=== PATIENT | female | born 1935 | race Asian ===

== ENCOUNTER → 2016-08-16 | Outpatient (CLI) | payer MEDICARE, OTHER ==
[~2016-08-16] MED LIST: ASPI81TA42 PO; ATOR40TA28 PO; BACL10TA PO; BISO1TAB46 PO; DIPH25 PO; LISI1TAB11 PO; METF10002 PO; MULT-1203; NIFE60TA81 PO; OMEP20CA10 PO; SITA100 PO; VALS160T2 PO; [UNRECOGNIZED DRUG - CODE] PO
[2016-08-16 12:29] LABS: CALCIUM, TOTAL 9.1 mg/dL (8.8-10.5); CREATININE 1.36 mg/dL (0.60-1.30); POTASSIUM 4.6 mmol/L (3.5-5.1)
== END | disposition home or self-care (01) ==
LOC: LABPV 09:56
PROVIDERS: ATTEND Internal Medicine Nephrology
DX: E11.22 Type 2 diabetes mellitus with diabetic chronic kidney disease (principal); N18.3 Chronic kidney disease, stage 3 (moderate); R60.0 Localized edema

== ENCOUNTER → 2018-11-05 | Outpatient (CLI) | payer MEDICARE, OTHER ==
[~2018-11-05] MED LIST changes: +AMLO-343 PO; +ASPI81TA40 PO; -ASPI81TA42 PO; +METF-446 PO; -METF10002 PO; -[UNRECOGNIZED DRUG - CODE] PO
== END | disposition home or self-care (01) ==
LOC: RADPV 09:09
PROVIDERS: ATTEND Internal Medicine
DX: M47.816 Spondylosis without myelopathy or radiculopathy, lumbar region (principal); I70.0 Atherosclerosis of aorta
CPT/HCPCS: 72100; 72170

== ENCOUNTER → 2019-08-13 | Outpatient (CLI) | payer MEDICARE, OTHER ==
[~2019-08-13] MED LIST changes: -OMEP20CA10 PO; +OMEP20CA12 PO
== END | disposition home or self-care (01) ==
LOC: RADPV 10:39
PROVIDERS: ATTEND Podiatrist
DX: L97.529 Non-pressure chronic ulcer of other part of left foot with unspecified severity (principal); M20.12 Hallux valgus (acquired), left foot; M77.32 Calcaneal spur, left foot; M25.872 Other specified joint disorders, left ankle and foot

== ENCOUNTER 2020-10-04 05:43 | Day surgery (SDC) | payer MEDICARE, OTHER ==
[2020-10-01 13:44] LABS: COVID AG,FIA SOURCE NASOPHARYNGEAL
[~2020-10-04] VITALS: Ht 154.9 cm; Wt 50.9 kg
[~2020-10-04 05:43] MED LIST changes: +ACET-2247 PO; +ALBU8HFA IH; -AMLO-343 PO; +AMOX1TAB16 PO; +APIX2.5T PO; +ASCO500 PO; -ASPI81TA40 PO; -ATOR40TA28 PO; -BACL10TA PO; -BISO1TAB46 PO; +CARV25 PO; +CLOP75TA60 PO; -DIPH25 PO; +DULO30CA96 PO; +FAMO20 PO; +FLUT1BLS IH; +FURO40 PO; +HYDR50TA36 PO; +ISOS60TA77 PO; +LACT1CAP70 PO; -LISI1TAB11 PO; -MULT-1203; +MULT-264 PO; -NIFE60TA81 PO; +OLOP5DRO14 OU; -OMEP20CA12 PO; +OS500 PO; +ROSU20TA73 PO; -SITA100 PO; +SODIUM CHLORIDE 0.9% 1,000 ML IV ONE; +TRAM50TA4 PO; -VALS160T2 PO; +ZINC220C14 PO
[2020-10-04] MEDS ORDERED: SODIUM CHLORIDE 0.9% 1,000 ML ONE (05:54)
[2020-10-04 06:58] LABS: GLUCOMETER DEV NAME(LOC) SDS.; GLUCOSE,POINT OF CARE 174 MG/DL (70-110)
[2020-10-04] MEDS ORDERED: SODIUM CHLORIDE 0.9% 1,000 ML IV ONE (07:00)
[2020-10-04 07:23] VITALS: BP 207/77
[2020-10-04] MEDS ORDERED: SODIUM BICARBONATE 50 MEQ/50 ML VIAL ONE (07:33)
[2020-10-04] MEDS ORDERED: INSU100V SQ (07:33)
[2020-10-04] MEDS ORDERED: LIDOCAINE/PF 1% 30 ML VIAL ONE (07:33)
[2020-10-04] MEDS ORDERED: ACAR50TA2 PO (07:33)
[2020-10-04] MEDS ORDERED: IODIXANOL 320 MG/ML 150 ML VIAL ONE (07:33)
[2020-10-04] MEDS ORDERED: AMLO2.5T96 PO (07:33)
[2020-10-04] MEDS ORDERED: HEPARIN SODIUM 1000 UNITS/NS 1,000 ML ONE (07:33)
[2020-10-04] MEDS ORDERED: INSLAN SQ (07:33)
[2020-10-04] MEDS ORDERED: IODIXANOL 320 MG/ML 100 ML VIAL ONE ×2 (07:33→09:12)
[2020-10-04] MEDS ORDERED: MIDAZOLAM HCL 2 MG/2 ML VIAL ONE ×4 (07:40→10:39)
[2020-10-04] MEDS ORDERED: FentaNYL CITRATE PF 100 MCG/2 ML VIAL ONE ×2 (07:40→09:44)
[2020-10-04] MEDS ORDERED: IODIXANOL 320 MG/ML 150 ML VIAL IARTER ONE (08:15)
[2020-10-04] MEDS ORDERED: IODIXANOL 320 MG/ML 100 ML VIAL IARTER ONE (08:15)
[2020-10-04] MEDS ORDERED: LIDOCAINE 1% 30 ML/SOD BICARB 8.4% 4 ML SQ ONE (08:15)
[2020-10-04] MEDS ORDERED: MIDAZOLAM HCL 2 MG/2 ML VIAL IVP ONE ×4 (08:15→10:15)
[2020-10-04] MEDS ORDERED: HEPARIN SODIUM 1000 UNITS/NS 1,000 ML IARTER ONE (08:15)
[2020-10-04] MEDS ORDERED: FentaNYL CITRATE PF 100 MCG/2 ML VIAL IVP ONE ×4 (08:15→10:15)
[2020-10-04] MEDS ORDERED: NITROGLYCERIN 50 MG/D5% WATER 250 ML ONE (08:47)
[2020-10-04] MEDS ORDERED: VERAPAMIL HCL 2.5 MG/ML 2 ML VIAL ONE (08:47)
[2020-10-04] MEDS ORDERED: HEPARIN SODIUM,PORCINE 5,000 UNITS/ML VIAL IVP ONE ×2 (09:15→10:00)
[2020-10-04] MEDS ORDERED: IODIXANOL 320 MG/ML 50 ML VIAL IARTER ONE (10:15)
[2020-10-04] MEDS ORDERED: NITROGLYCERIN/D5W 50 MG/250 ML IV BOTTLE IARTER ONE (10:15)
[2020-10-04] MEDS ORDERED: IODIXANOL 320 MG/ML 50 ML VIAL ONE (10:35)
[2020-10-04] MEDS ORDERED: SODIUM CHLORIDE 0.9% 500 ML IV ONE (11:00)
[2020-10-04] MEDS ORDERED: ACETAMINOPHEN 325 MG TABLET PO PRN (11:00)
[2020-10-04 13:39] VITALS: BP 162/65
== END 2020-10-04 17:00 | disposition home or self-care (01) ==
LOC: CATHLAB 05:43
PROVIDERS: ATTEND Internal Medicine Cardiovascular Disease
DX: I70.212 Atherosclerosis of native arteries of extremities with intermittent claudication, left leg (principal); I70.222 Atherosclerosis of native arteries of extremities with rest pain, left leg; I70.245 Atherosclerosis of native arteries of left leg with ulceration of other part of foot; I25.10 Atherosclerotic heart disease of native coronary artery without angina pectoris; I10 Essential (primary) hypertension; E78.5 Hyperlipidemia, unspecified; E11.51 Type 2 diabetes mellitus with diabetic peripheral angiopathy without gangrene; I48.0 Paroxysmal atrial fibrillation; Z88.0 Allergy status to penicillin; Z79.01 Long term (current) use of anticoagulants; Z79.4 Long term (current) use of insulin; Z90.710 Acquired absence of both cervix and uterus; Z98.890 Other specified postprocedural states; Z95.5 Presence of coronary angioplasty implant and graft; Z89.411 Acquired absence of right great toe; Z88.1 Allergy status to other antibiotic agents; Z88.8 Allergy status to other drugs, medicaments and biological substances; Z79.899 Other long term (current) drug therapy
CPT/HCPCS: 37221; 37227; 75625; 75716; 76937; 82962; 87426; 99152; 99153; C1714; C1725; C1760; C1769 ×3; C1874; C1887; C9803; J1644 ×2; J2250; J3010; J3490 ×4; J7030; Q9967 ×3; 36200; 37205; 37229; 75630; 75962; Z7610

== ENCOUNTER 2020-10-08 13:34 | Emergency (ER) | payer MEDICARE, OTHER ==
[~2020-10-08] VITALS: Ht 149.9 cm; Wt 55.0 kg
[~2020-10-08 13:34] MED LIST changes: +ACAR50TA2 PO; +AMLO2.5T96 PO; -AMOX1TAB16 PO; -ASCO500 PO; +INSLAN SQ; +INSU100V SQ; -ISOS60TA77 PO; -LACT1CAP70 PO; -OLOP5DRO14 OU; -OS500 PO; -SODIUM CHLORIDE 0.9% 1,000 ML IV ONE
[2020-10-08 18:17] LABS: BASOPHILS % (AUTO) 0.4 % (0.0-2.0); EOSINOPHILS % (AUTO) 2.5 % (1.0-6.0); HEMATOCRIT 34.9 % (36-46); HEMOGLOBIN 11.1 g/dL (12.0-16.0); LYMPHOCYTES # (AUTO) 0.9 K/uL (1.0-4.8); LYMPHOCYTES % (AUTO) 20.4 % (22.0-44.0); MEAN CORPUSCULAR HEMOGLOBIN 28.1 pg (26.0-34.0); MEAN CORPUSCULAR HGB CONC 31.7 G/dL (31.0-37.0); MEAN CORPUSCULAR VOLUME 89 fL (80-100); MONOCYTES # (AUTO) 0.4 K/uL (0.1-1.0); MONOCYTES % (AUTO) 8.6 % (2.0-9.0); NEUTROPHILS % (AUTO) 68.1 % (40.0-70.0); PLATELET COUNT (AUTO) 179 K/uL (150-450); RED BLOOD CELL COUNT(AUTO) 3.94 MIL/uL (4.00-5.20); RED CELL DISTRIBUTION WIDTH 16.3 % (11.5-14.5)
[2020-10-08 18:26] LABS: CALCIUM, TOTAL 9.4 mg/dL (8.8-10.5); CREATININE 1.21 mg/dL (0.60-1.30); POTASSIUM 3.1 mmol/L (3.5-5.1)
[2020-10-08 18:30] LABS: PROTHROMBIN TIME 10.3 SEC (9.4-11.6)
[2020-10-08 18:32] LABS: ALBUMIN 3.9 g/dL (3.4-5.0); BILIRUBIN,TOTAL 0.5 mg/dL (0.1-1.0); TOTAL PROTEIN, SERUM 8.5 g/dL (6.4-8.2)
[2020-10-08 18:59] LABS: COVID AG,FIA SOURCE NASOPHARYNGEAL
[2020-10-08] MEDS: ACETAMINOPHEN 500 MG TABLET PO ONE (22:09)
[2020-10-08] MEDS: POTASSIUM CHLORIDE 10% 40 MEQ/30 ML LIQUID UDCUP PO ONE (22:24)
[2020-10-08 22:43] VITALS: BP 151/76
== END 2020-10-08 23:43 | disposition short-term general hospital (02) ==
LOC: EMS 13:44
DX: I97.89 Other postprocedural complications and disorders of the circulatory system, not elsewhere classified (principal); I73.9 Peripheral vascular disease, unspecified; E87.6 Hypokalemia; Z20.822 Contact with and (suspected) exposure to COVID-19
CPT/HCPCS: 71045; 80053; 82962; 84484; 85025; 85610; 85730; 87426; 93005; 93925; 99291; 36415-L1; 36415-TC

== ENCOUNTER 2022-09-01 11:51 | Inpatient (IN) | payer MEDICARE, OTHER ==
[~2022-09-01] VITALS: Ht 149.9 cm; Wt 53.5 kg
[~2022-09-01 11:51] MED LIST changes: +ALBU18HF12 IH; -ALBU8HFA IH; +DULO-114 PO; -DULO30CA96 PO; +TRAM-559 PO; -TRAM50TA4 PO
[2022-09-01 12:19] LABS: BASOPHILS % (AUTO) 0.2 % (0.0-2.0); CREATININE 1.31 mg/dL (0.60-1.30); EOSINOPHILS % (AUTO) 1.2 % (1.0-6.0); HEMATOCRIT 40.4 % (36-46); LYMPHOCYTES # (AUTO) 1.2 K/uL (1.0-4.8); LYMPHOCYTES % (AUTO) 28.3 % (22.0-44.0); MEAN CORPUSCULAR HEMOGLOBIN 29.2 pg (26.0-34.0); MEAN CORPUSCULAR HGB CONC 32.2 G/dL (31.0-37.0); MEAN CORPUSCULAR VOLUME 91 fL (80-100); MONOCYTES # (AUTO) 0.5 K/uL (0.1-1.0); MONOCYTES % (AUTO) 12.3 % (2.0-9.0); NEUTROPHILS # (AUTO) 2.5 K/uL (1.8-7.7); PLATELET COUNT (AUTO) 138 K/uL (150-450); POTASSIUM 4.3 mmol/L (3.5-5.1); RED BLOOD CELL COUNT(AUTO) 4.45 MIL/uL (4.00-5.20)
[2022-09-01 12:23] LABS: ALBUMIN 3.3 g/dL (3.4-5.0); BILIRUBIN,TOTAL 0.4 mg/dL (0.1-1.0); TOTAL PROTEIN, SERUM 6.9 g/dL (6.4-8.2)
[2022-09-01 12:34] LABS: CHOL/HDL RATIO 1.9 (3.9-5.7)
[2022-09-01] MEDS ORDERED: NITROGLYCERIN 2% (1 GM=INCH) OINTMENT PACKET TP ONE (13:30)
[2022-09-01] MEDS ORDERED: BISACODYL 10 MG RECTAL RECTAL SUPPOSITORY PR PRN (15:00)
[2022-09-01] MEDS ORDERED: ZOLPIDEM TARTRATE 5 MG TABLET PO PRN (15:00)
[2022-09-01] MEDS ORDERED: ACETAMINOPHEN 325 MG TABLET PO PRN (15:00)
[2022-09-01] MEDS ORDERED: MAGNESIUM HYDROXIDE SUSPENSION 30 ML UDCUP PO PRN (15:00)
[2022-09-01] MEDS ORDERED: HYDROCODONE/ACETAMINOPHEN 5-325 MG TABLET PO PRN (15:00)
[2022-09-01] MEDS ORDERED: MORPHINE SULFATE 2 MG/ML SYRINGE IVP PRN (15:00)
[2022-09-01] MEDS ORDERED: ONDANSETRON HCL 4 MG/2 ML VIAL IVP PRN (15:00)
[2022-09-01] MEDS ORDERED: HEPARIN SODIUM,PORCINE 5,000 UNITS/ML VIAL SQ SCH (16:00)
[2022-09-01] MEDS ORDERED: HEPARIN SODIUM,PORCINE 5,000 UNITS/ML VIAL IVP ONE (16:45)
[2022-09-01] MEDS ORDERED: ASPIRIN 325 MG TABLET PO ONE (16:45)
[2022-09-01] MEDS ORDERED: HEPARIN SODIUM,PORCINE 5,000 UNITS/ML VIAL IVP PRN ×2 (16:45)
[2022-09-01] MEDS: HEPARIN SODIUM 25000 UNITS/D5W 250 ML IV PRN (17:29)
[2022-09-01 19:49] LABS: COVID AG,FIA SOURCE NASAL SWAB
[2022-09-01 20:16] VITALS: BP 178/91
[2022-09-01] MEDS: AmLODIPine BESYLATE 2.5 MG TABLET PO SCH (20:39)
[2022-09-01] MEDS: CARVEDILOL 25 MG TABLET PO SCH (20:39)
[2022-09-01] MEDS: DOCUSATE SODIUM 100 MG CAPSULE PO SCH (21:00)
[2022-09-01] MEDS ORDERED: APIXABAN 2.5 MG TABLET PO SCH (21:00)
[2022-09-01 23:16] LABS: GLUCOMETER DEV NAME(LOC) 5S.2C; GLUCOSE,POINT OF CARE 129 MG/DL (70-110)
[2022-09-01 23:49] VITALS: BP 139/75
[2022-09-02 05:55] LABS: BASOPHILS % (AUTO) 0.5 % (0.0-2.0); EOSINOPHILS % (AUTO) 2.3 % (1.0-6.0); HEMATOCRIT 39.4 % (36-46); HEMOGLOBIN 12.9 g/dL (12.0-16.0); LYMPHOCYTES % (AUTO) 32.7 % (22.0-44.0); MEAN CORPUSCULAR HEMOGLOBIN 28.9 pg (26.0-34.0); MEAN CORPUSCULAR HGB CONC 32.6 G/dL (31.0-37.0); MEAN CORPUSCULAR VOLUME 89 fL (80-100); MONOCYTES # (AUTO) 0.4 K/uL (0.1-1.0); MONOCYTES % (AUTO) 11.4 % (2.0-9.0); NEUTROPHILS # (AUTO) 1.7 K/uL (1.8-7.7); NEUTROPHILS % (AUTO) 53.1 % (40.0-70.0); PLATELET COUNT (AUTO) 142 K/uL (150-450); RED BLOOD CELL COUNT(AUTO) 4.45 MIL/uL (4.00-5.20); RED CELL DISTRIBUTION WIDTH 15.8 % (11.5-14.5)
[2022-09-02 06:04] VITALS: BP 163/87
[2022-09-02 06:04] LABS: CHOL/HDL RATIO 1.9 (3.9-5.7)
[2022-09-02] MEDS ORDERED: DEXTROSE 50%-WATER 25 GM/50 ML SYRINGE IVP PRN (06:30)
[2022-09-02 08:43] VITALS: BP 177/85
[2022-09-02] MEDS: PANTOPRAZOLE SODIUM 40 MG DR TABLET PO SCH (10:19)
[2022-09-02] MEDS: CARVEDILOL 25 MG TABLET PO SCH ×2 (10:19→20:29)
[2022-09-02] MEDS: DOCUSATE SODIUM 100 MG CAPSULE PO SCH ×2 (10:19→20:35)
[2022-09-02] MEDS: ASPIRIN 81 MG CHEWABLE TABLET PO SCH (10:19)
[2022-09-02] MEDS: AmLODIPine BESYLATE 2.5 MG TABLET PO SCH (10:20)
[2022-09-02 12:17] VITALS: BP 162/84
[2022-09-02] MEDS: INSULIN LISPRO 100 UNITS/ML SQ PRN ×2 (13:02→20:28)
[2022-09-02] MEDS ORDERED: AmLODIPine BESYLATE 2.5 MG TABLET PO ONE (13:15)
[2022-09-02 17:20] VITALS: BP 173/84
[2022-09-02 20:07] VITALS: BP 165/93
[2022-09-02] MEDS: AmLODIPine BESYLATE 5 MG TABLET PO SCH (20:32)
[2022-09-03] VITALS: BP 155/79
[2022-09-03 02:21] LABS: GLUCOMETER DEV NAME(LOC) 5S.2C; GLUCOSE,POINT OF CARE 156 MG/DL (70-110)
[2022-09-03 02:21] LABS: GLUCOMETER DEV NAME(LOC) 5S.2C; GLUCOSE,POINT OF CARE 138 MG/DL (70-110)
[2022-09-03 02:21] LABS: GLUCOMETER DEV NAME(LOC) 5N.2C; GLUCOSE,POINT OF CARE 180 MG/DL (70-110)
[2022-09-03 02:21] LABS: GLUCOMETER DEV NAME(LOC) 5S.2C; GLUCOSE,POINT OF CARE 81 MG/DL (70-110)
[2022-09-03 04:00] VITALS: BP 170/85
[2022-09-03] MEDS: HEPARIN SODIUM 25000 UNITS/D5W 250 ML IV PRN ×2 (07:15→16:22)
[2022-09-03 08:22] LABS: GLUCOMETER DEV NAME(LOC) 5S.2C; GLUCOSE,POINT OF CARE 137 MG/DL (70-110)
[2022-09-03] MEDS: ASPIRIN 81 MG CHEWABLE TABLET PO SCH (08:39)
[2022-09-03] MEDS: DOCUSATE SODIUM 100 MG CAPSULE PO SCH ×2 (08:39→20:06)
[2022-09-03] MEDS: PANTOPRAZOLE SODIUM 40 MG DR TABLET PO SCH (08:39)
[2022-09-03] MEDS: AmLODIPine BESYLATE 5 MG TABLET PO SCH ×2 (08:39→20:06)
[2022-09-03] MEDS: CARVEDILOL 25 MG TABLET PO SCH ×2 (08:40→20:06)
[2022-09-03 08:54] VITALS: BP 173/89
[2022-09-03 10:00] VITALS: BP 142/72
[2022-09-03 11:29] VITALS: BP 150/66
[2022-09-03 12:01] LABS: GLUCOMETER DEV NAME(LOC) 5S.2C; GLUCOSE,POINT OF CARE 303 MG/DL (70-110)
[2022-09-03] MEDS: INSULIN LISPRO 100 UNITS/ML SQ PRN ×3 (12:09→22:20)
[2022-09-03 19:13] VITALS: BP 163/65
[2022-09-03] MEDS: HydrALAZINE HCL 25 MG TABLET PO SCH (20:07)
[2022-09-04 00:09] VITALS: BP 126/66
[2022-09-04 03:30] VITALS: BP 111/64
[2022-09-04 05:00] VITALS: BP 166/86
[2022-09-04] MEDS: INSULIN LISPRO 100 UNITS/ML SQ PRN ×2 (05:57→12:48)
[2022-09-04 07:02] LABS: GLUCOMETER DEV NAME(LOC) 5S.2C; GLUCOSE,POINT OF CARE 227 MG/DL (70-110)
[2022-09-04 07:02] LABS: GLUCOMETER DEV NAME(LOC) 5N.2C; GLUCOSE,POINT OF CARE 156 MG/DL (70-110)
[2022-09-04 07:02] LABS: GLUCOMETER DEV NAME(LOC) 5S.2C; GLUCOSE,POINT OF CARE 240 MG/DL (70-110)
[2022-09-04 07:09] LABS: BASOPHILS % (AUTO) 0.3 % (0.0-2.0); EOSINOPHILS % (AUTO) 1.7 % (1.0-6.0); HEMATOCRIT 42.6 % (36-46); HEMOGLOBIN 13.8 g/dL (12.0-16.0); LYMPHOCYTES # (AUTO) 0.8 K/uL (1.0-4.8); LYMPHOCYTES % (AUTO) 24.4 % (22.0-44.0); MEAN CORPUSCULAR HEMOGLOBIN 28.9 pg (26.0-34.0); MEAN CORPUSCULAR HGB CONC 32.5 G/dL (31.0-37.0); MEAN CORPUSCULAR VOLUME 89 fL (80-100); MONOCYTES # (AUTO) 0.4 K/uL (0.1-1.0); MONOCYTES % (AUTO) 11.3 % (2.0-9.0); NEUTROPHILS % (AUTO) 62.3 % (40.0-70.0); PLATELET COUNT (AUTO) 137 K/uL (150-450); RED CELL DISTRIBUTION WIDTH 15.7 % (11.5-14.5)
[2022-09-04 08:15] VITALS: BP 155/73
[2022-09-04] MEDS: HydrALAZINE HCL 25 MG TABLET PO SCH (08:32)
[2022-09-04] MEDS: CARVEDILOL 25 MG TABLET PO SCH (08:33)
[2022-09-04] MEDS: ASPIRIN 81 MG CHEWABLE TABLET PO SCH (08:33)
[2022-09-04] MEDS: PANTOPRAZOLE SODIUM 40 MG DR TABLET PO SCH (08:33)
[2022-09-04] MEDS: AmLODIPine BESYLATE 5 MG TABLET PO SCH (08:33)
[2022-09-04] MEDS: DOCUSATE SODIUM 100 MG CAPSULE PO SCH (08:33)
[2022-09-04 09:34] LABS: ALBUMIN 3.6 g/dL (3.4-5.0); BILIRUBIN,TOTAL 0.7 mg/dL (0.1-1.0); CALCIUM, TOTAL 9.1 mg/dL (8.8-10.5); CREATININE 1.06 mg/dL (0.60-1.30); POTASSIUM 4.2 mmol/L (3.5-5.1); TOTAL PROTEIN, SERUM 7.8 g/dL (6.4-8.2)
[2022-09-04 09:45] LABS: APPEARANCE,URINE CLEAR (CLEAR); BILIRUBIN,URINE NEGATIVE (NEGATIVE); GLUCOSE, URINE (UA) 300-500 mg/dL (NEGATIVE); KETONES,URINE NEGATIVE (NEGATIVE); LEUKOCYTE ESTERASE ,URINE SMALL (NEGATIVE); NITRATE,URINE NEGATIVE (NEGATIVE); OCCULT BLOOD,URINE NEGATIVE (NEGATIVE); PH,URINE 6.5 (5.0-8.0); PROTEIN,URINE NEGATIVE (NEGATIVE); SPECIFIC GRAVITIY, URINE 1.008 (1.003-1.030); UROBILINOGEN,URINE <=1.0 mg/dL (<=1.0)
[2022-09-04 09:51] LABS: AMPHET/METH SCREEN,URINE NEGATIVE (NEGATIVE); BARBITURATE SCREEN, URINE NEGATIVE (NEGATIVE); BENZODIAZEPINES SCREEN,URINE NEGATIVE (NEGATIVE); CANNABINOID SCREEN,URINE NEGATIVE (NEGATIVE); COCAINE SCREEN,URINE NEGATIVE (NEGATIVE); METHADONE SCREEN, URINE NEGATIVE (NEGATIVE); OPIATE SCREEN,URINE NEGATIVE (NEGATIVE); PHENCYCLIDINE SCREEN,URINE NEGATIVE (NEGATIVE)
[2022-09-04 10:35] LABS: BACTERIA,URINE None Seen /HPF (None Seen); RBC,URINE None Seen /HPF (0-2); SQUAMOUS EPITHELIAL CELL,UR Few /LPF (None Seen)
[2022-09-04 12:31] VITALS: BP 143/67
[2022-09-04] MEDS ORDERED: CLOPIDOGREL BISULFATE 75 MG TABLET PO ONE (12:45)
[2022-09-04] MEDS ORDERED: ACAR50TA5 PO (12:52)
[2022-09-04] MEDS ORDERED: FURO20 PO (12:52)
[2022-09-04] MEDS ORDERED: ASPI81 PO (13:10)
[2022-09-04] MEDS ORDERED: CLOP75TA60 PO (13:10)
[2022-09-04] MEDS ORDERED: HYDR25TA84 PO (13:10)
[2022-09-04] MEDS ORDERED: AMLO-257 PO (13:10)
[2022-09-04] MEDS ORDERED: CARV25 PO (13:10)
[2022-09-04] MEDS ORDERED: APIX2.5T PO (13:33)
[2022-09-04 20:26] LABS: GLUCOMETER DEV NAME(LOC) 5S.2C; GLUCOSE,POINT OF CARE 316 MG/DL (70-110)
[2022-09-04 20:26] LABS: GLUCOMETER DEV NAME(LOC) 5S.2C; GLUCOSE,POINT OF CARE 231 MG/DL (70-110)
[2022-09-05] MEDS ORDERED: CLOPIDOGREL BISULFATE 75 MG TABLET PO SCH (09:00)
== END 2022-09-04 17:11 | disposition home health service (06) | DRG 69 ==
LOC: EMS 11:51 → 5N 18:31 → UNDOADMIN 19:54
PROVIDERS: ADMIT Internal Medicine; ATTEND Internal Medicine
DX: G45.9 Transient cerebral ischemic attack, unspecified (principal); I21.A1 Myocardial infarction type 2; I48.20 Chronic atrial fibrillation, unspecified; E78.5 Hyperlipidemia, unspecified; I12.9 Hypertensive chronic kidney disease with stage 1 through stage 4 chronic kidney disease, or unspecified chronic kidney disease; N18.30 Chronic kidney disease, stage 3 unspecified; E11.22 Type 2 diabetes mellitus with diabetic chronic kidney disease; I25.10 Atherosclerotic heart disease of native coronary artery without angina pectoris; I48.0 Paroxysmal atrial fibrillation; E11.51 Type 2 diabetes mellitus with diabetic peripheral angiopathy without gangrene; J45.909 Unspecified asthma, uncomplicated; Z20.822 Contact with and (suspected) exposure to COVID-19; Z79.01 Long term (current) use of anticoagulants; Z79.4 Long term (current) use of insulin; Z79.84 Long term (current) use of oral hypoglycemic drugs; Z88.1 Allergy status to other antibiotic agents; Z88.8 Allergy status to other drugs, medicaments and biological substances; Z89.611 Acquired absence of right leg above knee; Z79.02 Long term (current) use of antithrombotics/antiplatelets; Z79.51 Long term (current) use of inhaled steroids; Z79.82 Long term (current) use of aspirin; Z79.899 Other long term (current) drug therapy; Z82.49 Family history of ischemic heart disease and other diseases of the circulatory system; Z83.3 Family history of diabetes mellitus; Z86.011 Personal history of benign neoplasm of the brain; Z88.2 Allergy status to sulfonamides; Z90.710 Acquired absence of both cervix and uterus
CPT/HCPCS: 70496; 70498; 71045; 80053; 80061; 80307; 81001; 82948; 82962; 84484; 85025; 85610; 85730; 86850; 86900; 86901; 87086; 87186; 93005; 93306; 97116; 97161; 97165; 97535; 99291; J1644; 36415-L1; 36415-TC; 70450; 70450-TC